=== PATIENT | male | born 1965 | race Caucasian/White ===

== ENCOUNTER 2021-05-09 15:05 | Outpatient (CLI) | payer OTHER, SELFPAY ==
[2021-05-09 17:05] LABS: SARS-CoV-2 RNA PCR Positive (Negative)
== END 2021-05-09 15:06 | disposition home or self-care (01) ==
LOC: CHSLAB 15:12
PROVIDERS: PCP Internal Medicine; Visit Provider Internal Medicine
DX: U07.1 COVID-19 (principal)
CPT/HCPCS: C9803; U0003; U0005